=== PATIENT | female | born 1965 | race Caucasian/White ===

== ENCOUNTER 2021-10-09 18:59 | Emergency (ER) | payer OTHER ==
[2021-10-09] MEDS ORDERED: Cephalexin 500 MG Cap PO ONE (22:06)
== END 2021-10-09 22:43 | disposition home or self-care (01) ==
LOC: JD.ED 18:59
DX: L03.115 Cellulitis of right lower limb (principal); Z87.891 Personal history of nicotine dependence; Z91.018 Allergy to other foods; Z88.8 Allergy status to other drugs, medicaments and biological substances
CPT/HCPCS: 99283; A9270